=== PATIENT | female | born 1995 | race African-American/Black ===

== ENCOUNTER 2018-12-03 07:39 | Day surgery (SDC) | payer OTHER ==
[2018-12-03 07:59] VITALS: BMI 36.3
--- NOTE | 2018-12-03 09:54 | PRG ---
DATE OF SERVICE: 12/03/2018 SUBJECTIVE: Ms. Manzo is a 23-year-old female, G1, P0, who is at 28 weeks 5 days' gestation, who is a patient of Dr. Elizabeth Ramires. She presented to Labor and Delivery for evaluation of some diffuse abdominal pain and lower back pain. This has been ongoing approximately a week or so. She denies any vaginal bleeding or heavy discharge. She has no fever. She states the pain is worse and more in her pelvis when she is on prolonged standing and in her lower back on prolonged standing. She reports an active fetus. She denies any chronic medical problems and no complications this . She actually reports she is supposed to see her private OB this afternoon in the office. OBJECTIVE: VITAL SIGNS: She has a blood pressure 114/68, pulse 73, and temperature is 98.3. heart tones are 145 with accelerations. No decelerations. Tocometer shows no contractions. PELVIC: Pelvic exam was performed. There were no vulvar or obvious vaginal lesions seen. No abnormal vaginal discharge noted. There was no evidence of rupture of membranes or vaginal bleeding seen. CERVIX: Cervix is closed, thick and -3 and very posterior. ASSESSMENT: This is a 23-year-old female, primigravida at 28 weeks 5 days' gestation with musculoskeletal type abdominal pain, pelvic pain, and back pain. The patient was reassured and discussed these are common only associated with the start of the third trimester, gave her interventions and considering a maternity support belt. Also Tylenol as needed for discomfort and even a heating pad for her lower back. We did send the urinalysis and this is pending at time of discharge. The patient states she is very hungry and needs to have breakfast, so she left Labor and Delivery and we will follow up with her private doctor this afternoon. Job ID: [id number]
[2018-12-03 11:08] LABS: Bilirubin Negative (Negative); Blood, Urine Negative (Negative); Clarity CLEAR (Clear); Glucose, Urine (Dipstick) Negative (Negative); Leukocyte Moderate (Negative); Nitrite Negative (Negative); Protein, Urine (Dipstick) Negative (Neg-Trace); Specific Gravity, Urine 1.022 (1.002-1.036); Urobilinogen 0.2 mg/dL (0.2-1.0)
[2018-12-03 11:17] LABS: Bacteria/HPF Rare-Few HPF (None Seen); Hyaline Casts/LPF 4-6 HYALINE CAST LPF (0-3 Hyaline); Pathc Cast-AUWi Flag 0.95 (0-2.49); RBC/HPF 0-3 HPF (0-3); WBC/HPF 0-3 HPF (0-3)
== END 2018-12-03 09:00 | disposition home health service (06) ==
LOC: L&D/OP 07:39
PROVIDERS: ATTEND Student in an Organized Health Care Education/Training Program
DX: O99.89 Other specified diseases and conditions complicating pregnancy, childbirth and the puerperium (principal); R10.9 Unspecified abdominal pain; R10.2 Pelvic and perineal pain; M54.5 Low back pain; Z3A.28 28 weeks gestation of pregnancy
CPT/HCPCS: 81001; 99283

== ENCOUNTER 2019-02-08 14:46 | Day surgery (SDC) | payer OTHER ==
[2019-02-08 15:49] VITALS: BP 133/74; TEMP 98.3; BMI 37.9
--- NOTE | 2019-02-09 00:59 | SS ---
DATE OF ADMISSION: 02/08/2019 DATE OF DISCHARGE: 02/08/2019 REGULAR PHYSICIAN: Elizabeth Ramires MD EVALUATING PHYSICIAN: Fernandez Doran MD CHIEF COMPLAINT: Back pain and vaginal pain at home. HISTORY OF PRESENT ILLNESS: Ms. Manzo is a 23-year-old black G1, P0 with an estimated date of confinement of 02/20/2019, who presents complaining of a 1-2 day history of back pain, vaginal pain, and irregular contractions. She denies ruptured membranes or vaginal bleeding. Her care has been with Dr. Ramires and has been reportedly without complications. She states that she is set for an induction next week. PAST MEDICAL HISTORY: Asthma. PAST SURGICAL HISTORY: Ganglion cyst removed from left hand. CURRENT MEDICATIONS: vitamins and an inhaler p.r.n. ALLERGIES: NO KNOWN ALLERGIES. SOCIAL HISTORY: Denies tobacco, alcohol, or drug use. REVIEW OF SYSTEMS: Denies nausea, vomiting, fever, chills, ruptured membranes, vaginal bleeding. PHYSICAL EXAMINATION: VITAL SIGNS: In triage, her vital signs are stable and she is afebrile. ABDOMEN: Soft, nontender, and gravid. PELVIC: Exam by the labor nurse shows the cervix to be closed, thick and high. heart tones are stable. Spontaneous accelerations are seen. No decelerations are seen. No significant regular uterine contractions are noted. ASSESSMENT: 1. A 38-week intrauterine . 2. No evidence of active labor at this time. PLAN: The patient will be dismissed home with labor precautions. She was told to return should her symptoms increase. Job ID: [id number]
== END 2019-02-08 16:25 | disposition home health service (06) ==
LOC: L&D/OP 14:46
PROVIDERS: ATTEND Student in an Organized Health Care Education/Training Program
DX: O47.1 False labor at or after 37 completed weeks of gestation (principal); O99.513 Diseases of the respiratory system complicating pregnancy, third trimester; J45.909 Unspecified asthma, uncomplicated; Z3A.38 38 weeks gestation of pregnancy
CPT/HCPCS: 99282

== ENCOUNTER 2019-02-16 19:15 | Inpatient (IN) | payer OTHER ==
[2019-02-16] MEDS ORDERED: Promethazine HCl 25 MG/ML VIAL IM PRN (20:05)
[2019-02-16] MEDS ORDERED: Carboprost 250 MCG/ML AMP IM PRN (20:05)
[2019-02-16] MEDS ORDERED: Misoprostol 200 MCG TAB PR PRN (20:05)
[2019-02-16] MEDS ORDERED: Acetaminophen 500 MG TAB PO PRN (20:05)
[2019-02-16] MEDS ORDERED: Zolpidem Tartrate 5 MG TAB PO PRN (20:05)
[2019-02-16] MEDS ORDERED: HYDROcodone/Acetaminophen 5/325 mg Tablet PO PRN (20:05)
[2019-02-16] MEDS ORDERED: hydrALAZINE 20 MG/ML VIAL SLOW IVP PRN (20:05)
[2019-02-16] MEDS ORDERED: Diphenoxylate HCl/Atropine Tablet PO PRN (20:05)
[2019-02-16] MEDS ORDERED: Methylergonovine 0.2 MG/ML VIAL IM PRN (20:05)
[2019-02-16] MEDS ORDERED: Ondansetron PF 4 MG/2 ML Vial IVP PRN (20:05)
[2019-02-16] MEDS ORDERED: Lidocaine 1% (PF) 30 ML VIAL SC PRN (20:05)
[2019-02-16] MEDS ORDERED: Ibuprofen 800 MG TAB PO PRN (20:05)
[2019-02-16] MEDS: Lactated Ringer's 1,000 ML IV SCH ×2 (20:15→22:00)
[2019-02-16] MEDS: NS w/ Oxytocin 10 units 500 ML IV SCH (20:15)
[2019-02-16 20:39] VITALS: BMI 38.5
[2019-02-16] MEDS ORDERED: Penicillin G Potassium 5 MILL.UNITS in Sodium Chloride 0.9% 100 ML IVPB SCH (21:00)
--- NOTE | 2019-02-16 21:01 | PDOC.LDHP ---
Labor and Delivery H&P Chief complaint: scheduled induction HPI: 23yo at 39w3d by LMP here for elective IOL. No complaints. Current gestational age (weeks): 39 Due date: 02/20/19 Dating criteria: first trimester ultrasound Grav: 1 Para: 0 Current complications: none Abnormal US findings: No Past Medical History: bipolar d/o no meds Current medications: pre- vitamins Previous surgical history: other (ganglion cyst on wrist) Allergies/Adverse Reactions: Allergies Allergy/AdvReac Type Severity Reaction Status Date / Time No Known Allergies Allergy Verified 02/16/19 20:29 Social history: none - Physical Exam Vital signs reviewed and normal: yes General: NAD Heart: RRR Lungs: CTAB Abdomen: gravid Extremeties: no edema FHT: category 1 [place] contractions every: rare - OB Labs Blood type: O RH: positive Antibody Screen: negative HIV: negative RPR: negative HEPSAg: negative 1 hour GCT: unknown (pt did accuchecks x 2 w that were wnl) GBS: positive Urine drug screen: negative Rubella: immune - Assessment L&D Assessment: elective induction at term - Plan Plan: admit to L&D, cervical ripening, labor augmentation if indicated, GBS antibiotic prophylaxis, informed consent obtained, anesthesia consult for pain management
[2019-02-16 22:07] LABS: Hemoglobin 11.6 g/dL (12.0-16.0); Mean Corpuscular HGB CONC 33.4 g/dL (32.0-36.0); Mean Corpuscular Hemoglobin 29.9 pg (27.0-31.0); Mean Corpuscular Volume 89.6 fL (78.0-98.0); Mean Platelet Volume 9.6 fL (7.4-10.4); Platelet Count 179 thou/uL (130-400); RBC Distribution Width 12.7 % (11.5-14.5); Red Blood Cell (RBC) Count 3.89 mill/uL (4.20-5.40); White Blood Cell (WBC) Count 7.9 thou/uL (4.8-10.8)
[2019-02-16] MEDS: Misoprostol 100 MCG TAB VAG SCH (22:28)
[2019-02-16 22:45] LABS: Syphilis Antibody Nonreactive (Nonreactive); Syphilis Antibody Index 0.04 S/CO (<1.00 Non-Reactive)
[2019-02-16 22:56] LABS: HBSAg Index 0.29 S/CO (0-0.99); Hep B Surf Ag Non-Reactive S/CO (NonReactive)
[2019-02-17] MEDS: Penicillin G 2.5 MILL.units 2.5 MILL.UNITS in Premix Bag 1 BAG IVPB SCH ×6 (02:30→18:59)
[2019-02-17] MEDS: Misoprostol 100 MCG TAB VAG SCH ×5 (04:08→18:02)
[2019-02-17] MEDS: Butorphanol Tartrate 1 MG/ML VIAL SLOW IVP PRN ×3 (05:45→11:44)
--- NOTE | 2019-02-17 08:53 | PDOC.LDPN ---
Labor & Delivery Progress Note - Subjective Subjective: painful contractions - Objective Vital signs reviewed and normal: yes General: NAD Uterine fundus: non tender Dilation: 3 Effacement: 75% Station: -2 FHT: category 1 [place] contractions every: 3min AROM: clear fluid IUPC placed: yes FSE placed: yes - Assessment (1) Term Code(s): Z34.90 - ENCNTR FOR SUPRVSN OF NORMAL , UNSP, UNSP TRIMESTER Current Visit: Yes Status: Acute Plan: labor augmentation
[2019-02-17] MEDS ORDERED: Bupivacaine/Epinephrine 0.25% 30 ML VIAL ONE (09:00)
[2019-02-17] MEDS ORDERED: Lidocaine 2% MPF 10 ML AMP (For Epidural Use) ONE (09:00)
[2019-02-17] MEDS: NS w/ Oxytocin 10 units 500 ML IV SCH (10:38)
[2019-02-17] MEDS: Lactated Ringer's 1,000 ML IV SCH ×2 (11:17→13:51)
--- NOTE | 2019-02-17 12:55 | PDOC.LDPN ---
Labor & Delivery Progress Note - Subjective Subjective: painful contractions - Objective Vital signs reviewed and normal: yes General: breathing through contractions Uterine fundus: non tender Dilation: 4 Effacement: 75% Station: -2 FHT: category 1 [place] contractions every: 3-5min - Assessment (1) Term Code(s): Z34.90 - ENCNTR FOR SUPRVSN OF NORMAL , UNSP, UNSP TRIMESTER Current Visit: Yes Status: Acute Plan: labor augmentation (increase pitocin for irregular contraction pattern. Pt requests epidural now.)
[2019-02-17] MEDS ORDERED: Fentanyl 4 mcg/Bup 0.1% Cadd 100 ML ONE ×2 (12:59→18:48)
[2019-02-17] MEDS ORDERED: diphenhydrAMINE 50 MG/ML VIAL IVP PRN (14:12)
[2019-02-17] MEDS ORDERED: Ondansetron PF 4 MG/2 ML Vial IVP PRN ×2 (14:12→22:20)
[2019-02-17] MEDS ORDERED: Acetaminophen 325 MG TAB PO PRN (14:12)
[2019-02-17] MEDS ORDERED: ePHEDrine/0.9% NaCl/PF SYRINGE 50 mg/10 ml SLOW IVP PRN (14:12)
[2019-02-17] MEDS ORDERED: Promethazine HCl 25 MG/ML VIAL IM PRN ×2 (14:12→22:20)
[2019-02-17] MEDS ORDERED: Lactated Ringer's 500 ML IV PRN (14:12)
[2019-02-17] MEDS ORDERED: Naloxone HCl 0.4 mg/ml Vial IVP PRN ×2 (14:12)
[2019-02-17] MEDS ORDERED: Communication Order-Pharmacy FS SCH (14:15)
[2019-02-17] MEDS ORDERED: Fentanyl 4 mcg/Bupivacaine 0.1% Cassette 100 ML EPIDURAL SCH (14:15)
[2019-02-17] MEDS ORDERED: Fentanyl 100 MCG/2 ML VIAL ONE (14:41)
--- NOTE | 2019-02-17 17:29 | PDOC.LDPN ---
Labor & Delivery Progress Note - Subjective Subjective: vaginal pressure - Objective Vital signs reviewed and normal: yes General: NAD Uterine fundus: non tender Dilation: 6 Effacement: 90% Station: 0 FHT: category 2, early decelerations, variable decelerations [place] contractions every: 4min - Assessment (1) Term Code(s): Z34.90 - ENCNTR FOR SUPRVSN OF NORMAL , UNSP, UNSP TRIMESTER Current Visit: Yes Status: Acute Plan: labor augmentation
[2019-02-17] MEDS: NS / Oxytocin 40 units/1000ml 1,000 ML IV PRN ×2 (20:30→23:05)
--- NOTE | 2019-02-17 20:36 | PDOC.OPDEL ---
OB Operative/Delivery Note Delivery Dr/Surgeon: Keyla Assist: n/a Pre-Delivery Diagnosis: elective induction Procedure/Post Delivery Dx: spontaneous vaginal delivery Weeks gestation: 39 Anesthesia: epidural - Findings A Sex: male - 1 min: 8 - 5 min: 9 - Additional Findings/Plan Placenta delivered: spontaneous Repaired Obstetrical Laceration: 1st degree Estimated blood loss: 300cc Post delivery plan: routine recovery
[2019-02-17] MEDS ORDERED: Benzocaine-Menthol 82.5 ML CAN TOP PRN (22:20)
[2019-02-17] MEDS ORDERED: Lanolin Ointment 7 GM TUBE TOP PRN (22:20)
[2019-02-17] MEDS ORDERED: hydrALAZINE 20 MG/ML VIAL SLOW IVP PRN (22:20)
[2019-02-17] MEDS ORDERED: Milk Of Magnesia 30 ML UDCUP PO PRN (22:20)
[2019-02-17] MEDS ORDERED: HYDROcodone/Acetaminophen 5/325 mg Tablet PO PRN ×2 (22:20)
[2019-02-17] MEDS ORDERED: diphenhydrAMINE 25 MG CAP PO PRN (22:20)
[2019-02-17] MEDS ORDERED: NS / Oxytocin 40 units/1000ml 1,000 ML IV SCH (22:20)
[2019-02-17] MEDS ORDERED: Preparation H Ointment 28 GM TUBE PR PRN (22:20)
[2019-02-17] MEDS ORDERED: Bisacodyl 10 MG SUPP PR PRN (22:20)
[2019-02-17] MEDS ORDERED: Ibuprofen 800 MG TAB PO SCH (22:30)
[2019-02-17] MEDS ORDERED: Docusate Calcium (SURFAK) 240 MG CAP PO SCH (22:30)
[2019-02-18] MEDS: Docusate Calcium (SURFAK) 240 MG CAP PO SCH ×2 (01:13→08:36)
[2019-02-18] MEDS: Ibuprofen 800 MG TAB PO SCH ×3 (01:13→16:14)
[2019-02-18] MEDS: Ferrous Sulfate 325 MG TAB PO SCH ×2 (08:34→19:18)
[2019-02-18] MEDS: Prenatal Vitamin 1 TAB PO SCH (08:36)
[2019-02-18] MEDS: Penicillin G 2.5 MILL.units 2.5 MILL.UNITS in Premix Bag 1 BAG IVPB SCH (08:41)
[2019-02-18] MEDS: Misoprostol 100 MCG TAB VAG SCH (08:41)
[2019-02-18] MEDS ORDERED: Adacel (T-DAP) 0.5 ML SYRINGE IM ONE (09:00)
--- NOTE | 2019-02-18 09:29 | PDOC.PP ---
Post Progress Note Post Day #: 1 Subjective: PPD 1 s/p cannon doing well. Patient is planning on bottle feeding. PO intake tolerated: yes Ambulation: yes Vital Signs (12 hours) Temp Pulse Resp BP BP Pulse Ox 02/18/19 08:14 98.3 F 61 20 112/57 L 99 02/18/19 04:05 98.3 F 91 16 99/56 L 02/17/19 23:30 98.3 F 83 20 120/56 L 100 Weight Weight 276 lb All other vital signs reviewed. - Physical Examination General: NAD Neurological: no gross focal deficits Psychiatric: A&Ox3, normal affect Result Diagrams: 02/16/19 21:34 Additional Labs: Post Labs Blood Type O POSITIVE 02/17/19 01:06 Hep Bs Antigen Non-Reactive S/CO (NonReactive) 02/16/19 21:34 (1) Vaginal delivery Code(s): O80 - ENCOUNTER FOR FULL-TERM UNCOMPLICATED DELIVERY Status: Acute (2) Term Code(s): Z34.90 - ENCNTR FOR SUPRVSN OF NORMAL , UNSP, UNSP TRIMESTER Status: Acute - Assessment/Plan A&P: PPD 1 s/p cannon 1. Monitor routine care. 2. Routine care per pediatrics. 3. Plan discharge tomorrow 02/19.
[2019-02-18] MEDS ORDERED: Lidocaine 2% MPF 10 ML AMP (For Epidural Use) ONE (10:58)
[2019-02-18] MEDS ORDERED: Bupivacaine/Epinephrine 0.25% 30 ML VIAL ONE (10:58)
[2019-02-19] MEDS: Docusate Calcium (SURFAK) 240 MG CAP PO SCH ×2 (06:35→09:05)
[2019-02-19] MEDS: Ibuprofen 800 MG TAB PO SCH ×2 (06:35)
--- NOTE | 2019-02-19 06:40 | PDOC.PP ---
Post Progress Note Post Day #: 2 Subjective: Ms. Manzo is doing well this morning. She has no complaints. Denies pain. Reports lochia has significantly decreased. Bottle feeding. PO intake tolerated: yes Flatus: yes Ambulation: yes Vital Signs (12 hours) Temp Pulse Resp BP Pulse Ox 02/18/19 20:01 97.9 F 90 20 116/70 99 Weight Weight 125.191 kg - Physical Examination General: NAD Cardiovascular: RRR Respiratory: clear to auscultation bilaterally Abdominal: + bowel sounds, no distention, appropriately TTP Neurological: no gross focal deficits Psychiatric: normal affect Result Diagrams: 02/16/19 21:34 Additional Labs: Post Labs Blood Type O POSITIVE 02/17/19 01:06 Hep Bs Antigen Non-Reactive S/CO (NonReactive) 02/16/19 21:34 (1) Vaginal delivery Code(s): O80 - ENCOUNTER FOR FULL-TERM UNCOMPLICATED DELIVERY Status: Acute - Assessment/Plan s/p - patient recovering well with routine care - bottle feeding Dispo: Plan for discharge this morning. Patient has follow up appt scheduled with Dr. Ramires 03/31.
[2019-02-19 07:40] VITALS: BP 122/69; TEMP 98.2
[2019-02-19] MEDS: Ferrous Sulfate 325 MG TAB PO SCH (09:04)
[2019-02-19] MEDS: Prenatal Vitamin 1 TAB PO SCH (09:05)
== END 2019-02-19 14:24 | disposition home or self-care (01) | DRG 807 ==
LOC: L&D 19:55 → EEVIPCON 19:55 → 3SE 02-17 23:29
PROVIDERS: ADMIT Student in an Organized Health Care Education/Training Program; ATTEND Obstetrics & Gynecology
PROC: 10E0XZZ Delivery of Products of Conception, External Approach (ICD-10-PCS; principal; 2019-02-17)
PROC: 10907ZC Drainage of Amniotic Fluid, Therapeutic from Products of Conception, Via Natural or Artificial Opening (ICD-10-PCS; 2019-02-17)
PROC: 0HQ9XZZ Repair Perineum Skin, External Approach (ICD-10-PCS; 2019-02-17)
PROC: 3E0P7VZ Introduction of Hormone into Female Reproductive, Via Natural or Artificial Opening (ICD-10-PCS; 2019-02-17)
PROC: 3E033VJ Introduction of Other Hormone into Peripheral Vein, Percutaneous Approach (ICD-10-PCS; 2019-02-17)
DX: O99.824 Streptococcus B carrier state complicating childbirth (principal); Z37.0 Single live birth; O70.0 First degree perineal laceration during delivery; Z3A.39 39 weeks gestation of pregnancy; O76 Abnormality in fetal heart rate and rhythm complicating labor and delivery
CPT/HCPCS: 36415; 36416; 51702; 76815; 85027; 86780; 86850; 86900; 86901; 87340; J0595; J2001; J2540; J2590; J3010; J3490

== ENCOUNTER 2021-06-21 15:52 | Emergency (ER) | payer OTHER ==
[2021-06-21 16:32] LABS: #Lymphocytes 2.6 thou/uL (1.20-3.40); #Monocytes 0.2 thou/uL (0.11-0.59); #Neutrophils 2.5 thou/uL (1.40-6.50); %Basophils 0.5 % (0.0-1.0); %Eosinophils 0.9 % (0.0-10.0); %Lymphocytes 48.2 % (21.0-51.0); %Monocytes 3.6 % (0.0-10.0); %Neutrophils 46.8 % (42.0-75.0); Hemoglobin 13.5 g/dL (12.0-16.0); Mean Corpuscular HGB CONC 33.3 g/dL (32.0-36.0); Mean Corpuscular Hemoglobin 29.4 pg (27.0-31.0); Mean Corpuscular Volume 88.2 fL (78.0-98.0); Mean Platelet Volume 8.7 fL (7.4-10.4); Platelet Count 238 thou/uL (130-400); RBC Distribution Width 12.2 % (11.5-14.5); Red Blood Cell (RBC) Count 4.58 mill/uL (4.20-5.40); White Blood Cell (WBC) Count 5.3 thou/uL (4.8-10.8)
[2021-06-21 16:41] LABS: BHCG - Serum Negative (NEGATIVE); Pregs Control Background? CLEAR/WHITE (CLR/WHITE); Pregs Control Bar Appear? YES (CONTROL BAR)
[2021-06-21 16:55] LABS: ALT (SGPT) 10 U/L (8-55); AST (SGOT) 10 U/L (5-34); Albumin 4.1 g/dL (3.5-5.0); Alkaline Phosphatase 52 U/L (40-110); Anion Gap 11 mmol/L (10-20); BUN (Urea Nitrogen) 7 mg/dL (7.0-18.7); Bilirubin, Total 0.5 mg/dL (0.2-1.2); Calc. Creatinine Clearance 0 mL/min (70-130); Calcium 10.1 mg/dL (7.8-10.44); Carbon Dioxide 25 mmol/L (22-29); Chloride 108 mmol/L (98-107); Globulin 3.2 g/dL (2.4-3.5); Glucose 104 mg/dL (70-105); Potassium 3.9 mmol/L (3.5-5.1); Protein, Total 7.3 g/dL (6.0-8.3); Sodium 140 mmol/L (136-145)
== END 2021-06-21 17:09 | disposition home or self-care (01) ==
LOC: ERS 15:52
DX: R10.32 Left lower quadrant pain (principal); I10 Essential (primary) hypertension; J45.909 Unspecified asthma, uncomplicated
CPT/HCPCS: 36415; 80053; 84703; 85025; 99284

== ENCOUNTER 2021-08-14 08:01 | Outpatient (CLI) | payer OTHER | END 2021-08-14 08:02 | disposition home or self-care (01) | LOC: RAD 08:01 | PROVIDERS: ATTEND Surgery | DX: R10.13 Epigastric pain (principal) | CPT/HCPCS: 74246 ==